=== PATIENT | female | born 1985 | race Two or more races ===

== ENCOUNTER 2019-07-23 01:51 | Emergency (ER) | payer MEDICAID ==
[~2019-07-23] VITALS: Ht 162.6 cm; Wt 84.4 kg
[2019-07-23 02:43] LABS: Basophils # (auto) 0 uL; Basophils % (auto) 0.3 % (0.0-2.0); Eosinophils # (auto) 0 uL; Eosinophils % (auto) 0.1 % (0.0-7.0); Hematocrit 35.4 % (36.0-46.0); Hemoglobin 12.1 g/dL (12.2-16.2); Lymphocytes # (auto) 1.3 uL; Lymphocytes % (auto) 18.3 % (10.0-50.0); Mean Corpuscular Hemoglobin 30.1 pg (28.0-32.0); Mean Corpuscular Hgb Conc. 34.3 g/dL (32.0-36.0); Mean Corpuscular Volume 87.7 fL (80.0-100.0); Monocytes # (auto) 0.2 uL; Neutrophils # (auto) 5.7 uL; Neutrophils % (auto) 78.3 % (37.0-80.0); Platelet Count (auto) 181 10^3/uL (140-450); Red Blood Cells 4.03 10^6/uL (4.0-5.20); Red Cell Distribution Width 14.2 % (11.8-14.3); White Blood Cell 7.3 10^3/uL (4.4-10.8)
[2019-07-23 02:59] LABS: INR 0.97 (0.9-1.15); Partial Thromboplastin Time 27.5 sec (23.64-32.05)
[2019-07-23 03:02] LABS: Albumin 3.7 g/dL (3.4-5.0); Anion Gap 8 (5-15); BUN/Creatinine Ratio 24.2; Blood Urea Nitrogen 15 mg/dL (7-18); Calcium 8.3 mg/dL (8.5-10.1); Carbon Dioxide 25 mmol/L (21-32); Chloride 106 mmol/L (98-107); GFR African American 141 mL/min; GFR Non-African American 116 mL/min; Glucose 183 mg/dL (74-106); Potassium 3.9 mmol/L (3.5-5.1); Sodium 139 mmol/L (136-145)
[2019-07-23 03:08] LABS: Alanine Aminotransferase 30 U/L (13-56); Alkaline Phosphatase 78 U/L (45-117); Aspartate Aminotransferase 14 U/L (15-37); Bilirubin, Total 0.1 mg/dL (0.2-1.0); Total Protein 7.8 g/dL (6.4-8.2)
[2019-07-23 05:58] VITALS: BP 145/89
== END 2019-07-23 07:24 | disposition left against medical advice (07) ==
LOC: ER 01:54
DX: J40 Bronchitis, not specified as acute or chronic (principal); I10 Essential (primary) hypertension
CPT/HCPCS: 36415; 71045; 80053; 83880; 84484; 85025; 85610; 85730; 93005

== ENCOUNTER 2019-09-09 18:00 | Emergency (ER) | payer MEDICAID ==
[~2019-09-09] VITALS: Ht 162.6 cm; Wt 81.6 kg
[2019-09-09 18:15] VITALS: BP 165/90
== END 2019-09-09 20:43 | disposition home or self-care (01) ==
LOC: ER 18:02
DX: G44.209 Tension-type headache, unspecified, not intractable (principal); M62.838 Other muscle spasm; M54.2 Cervicalgia; J45.909 Unspecified asthma, uncomplicated; I10 Essential (primary) hypertension

== ENCOUNTER 2019-09-16 08:31 | Emergency (ER) | payer MEDICAID ==
[~2019-09-16] VITALS: Ht 162.6 cm; Wt 81.6 kg
[2019-09-16 08:58] VITALS: BP 141/80
== END 2019-09-16 09:35 | disposition home or self-care (01) ==
LOC: ER 08:31
DX: R51 Headache (principal); M54.2 Cervicalgia; J45.909 Unspecified asthma, uncomplicated; I10 Essential (primary) hypertension; M62.838 Other muscle spasm

== ENCOUNTER 2019-11-04 18:49 | Emergency (ER) | payer MEDICAID ==
[~2019-11-04] VITALS: Ht 162.6 cm; Wt 81.2 kg
[2019-11-04 21:55] VITALS: BP 145/72
== END 2019-11-04 22:51 | disposition home or self-care (01) ==
LOC: ER 18:50
DX: J06.9 Acute upper respiratory infection, unspecified (principal); J45.909 Unspecified asthma, uncomplicated; I10 Essential (primary) hypertension

== ENCOUNTER 2019-11-20 00:06 | Emergency (ER) | payer MEDICAID ==
[~2019-11-20] VITALS: Ht 162.6 cm; Wt 81.6 kg
[~2019-11-20 00:06] MED LIST: AMLO5TAB15 PO; LISI-275 PO
[2019-11-20 01:22] LABS: Basophils # (auto) 0 uL; Basophils % (auto) 0.3 % (0.0-2.0); Eosinophils # (auto) 0.1 uL; Eosinophils % (auto) 1.4 % (0.0-7.0); Hematocrit 30.3 % (36.0-46.0); Hemoglobin 10.5 g/dL (12.2-16.2); Lymphocytes # (auto) 1.9 uL; Mean Corpuscular Hemoglobin 30.1 pg (28.0-32.0); Mean Corpuscular Hgb Conc. 34.5 g/dL (32.0-36.0); Mean Corpuscular Volume 87.4 fL (80.0-100.0); Monocytes # (auto) 0.5 uL; Monocytes % (auto) 6.5 % (0.0-12.0); Neutrophils # (auto) 5.7 uL; Neutrophils % (auto) 68.8 % (37.0-80.0); Platelet Count (auto) 150 10^3/uL (140-450); Red Blood Cells 3.47 10^6/uL (4.0-5.20); Red Cell Distribution Width 14.1 % (11.8-14.3); White Blood Cell 8.3 10^3/uL (4.4-10.8)
[2019-11-20 01:39] LABS: Albumin 3.4 g/dL (3.4-5.0); Calcium 8.7 mg/dL (8.5-10.1); Potassium 3.4 mmol/L (3.5-5.1)
[2019-11-20 01:41] LABS: BUN/Creatinine Ratio 17.3
[2019-11-20 01:44] LABS: Bilirubin, Total 0.3 mg/dL (0.2-1.0); Total Protein 7.5 g/dL (6.4-8.2)
[2019-11-20] MEDS ORDERED: PROMETHAZINE HCL 25 MG/ML 1ML IV ONE (03:30)
[2019-11-20] MEDS ORDERED: SODIUM CHLORIDE 0.9% 2,000 ML IV ONE (03:30)
[2019-11-20] MEDS ORDERED: IOHEXOL 300 MG/ML 100ML BOTTLE IJ ONE (04:35)
[2019-11-20 05:00] VITALS: BP 118/68
[2019-11-20 06:07] LABS: Urine Amorphous Crystal FEW /hpf (None Seen); Urine Bacteria FEW /hpf (None Seen); Urine Blood Negative /uL (Negative); Urine Specific Gravity 1.007 (1.001-1.035); Urine WBC 2 /hpf (0 - 5)
== END 2019-11-20 06:32 | disposition home or self-care (01) ==
LOC: ER 00:08
DX: N39.0 Urinary tract infection, site not specified (principal); G89.18 Other acute postprocedural pain; J45.909 Unspecified asthma, uncomplicated; I10 Essential (primary) hypertension; R42 Dizziness and giddiness; R51 Headache; Z90.49 Acquired absence of other specified parts of digestive tract
CPT/HCPCS: 36415; 70450; 80053; 81001; 81025; 85025; 85379; 99284; Q9967

== ENCOUNTER 2019-11-29 14:10 | Emergency (ER) | payer MEDICAID ==
[~2019-11-29] VITALS: Ht 162.6 cm; Wt 79.4 kg
[2019-11-29 14:51] VITALS: BP 139/88
== END 2019-11-29 17:09 | disposition home or self-care (01) ==
LOC: ER 14:10
DX: Z48.01 Encounter for change or removal of surgical wound dressing (principal); J45.909 Unspecified asthma, uncomplicated; I10 Essential (primary) hypertension; Z90.49 Acquired absence of other specified parts of digestive tract; Z79.899 Other long term (current) drug therapy

== ENCOUNTER 2020-06-17 04:39 | Emergency (ER) | payer MEDICAID ==
[~2020-06-17] VITALS: Ht 162.6 cm; Wt 80.7 kg
[2020-06-17] MEDS ORDERED: ACETAMINOPHEN 325 MG TAB PO ONE (06:00)
[2020-06-17 06:35] VITALS: BP 150/98
[2020-06-17 06:51] LABS: Basophils # (auto) 0 10 ^3/uL (0-0.2); Basophils % (auto) 0.4 % (0.0-2.0); Eosinophils # (auto) 0.1 10 ^3/uL (0-0.8); Eosinophils % (auto) 1.6 % (0.0-7.0); Hematocrit 36.5 % (36.0-46.0); Hemoglobin 12.4 g/dL (12.2-16.2); Lymphocytes # (auto) 0.8 10 ^3/uL (0.4-5.4); Lymphocytes % (auto) 25.2 % (10.0-50.0); Mean Corpuscular Hemoglobin 29.3 pg (28.0-32.0); Mean Corpuscular Hgb Conc. 33.8 g/dL (32.0-36.0); Mean Corpuscular Volume 86.6 fL (80.0-100.0); Monocytes # (auto) 0.4 10 ^3/uL (0-1.3); Monocytes % (auto) 12.4 % (0.0-12.0); Neutrophils % (auto) 60.4 % (37.0-80.0); Nucleated Red Blood Cells % 0.1 %; Platelet Count (auto) 125 10^3/uL (140-450); Red Blood Cells 4.22 10^6/uL (4.0-5.20); Red Cell Distribution Width 13.8 % (11.8-14.3); White Blood Cell 3.3 10^3/uL (4.4-10.8)
[2020-06-17 07:08] LABS: Albumin 3.8 g/dL (3.4-5.0); Calcium 8.3 mg/dL (8.5-10.1); Potassium 3.2 mmol/L (3.5-5.1)
[2020-06-17 07:10] LABS: BUN/Creatinine Ratio 14.5
[2020-06-17 07:12] LABS: Bilirubin, Total 0.2 mg/dL (0.2-1.0); Lactic Acid w/Reflex 2.1 mmol/L (0.4-2.0); Total Protein 8.2 g/dL (6.4-8.2)
[2020-06-17 07:45] LABS: Urine Bacteria NONE SEEN /hpf (None Seen); Urine Blood Negative /uL (Negative); Urine Mucus FEW (None Seen); Urine Specific Gravity 1.025 (1.001-1.035); Urine WBC 2 /hpf (0 - 5)
[2020-06-17] MEDS ORDERED: IPRATROPIUM BROM 0.5 MG/2.5ML INH SOL NEB ONE (08:30)
[2020-06-17] MEDS ORDERED: ALBUTEROL SULF 2.5 MG/0.5ML(0.5%) NEB SOLN NEB ONE (08:30)
== END 2020-06-17 09:58 | disposition home or self-care (01) ==
LOC: ER 04:39
DX: U07.1 COVID-19 (principal); R07.9 Chest pain, unspecified; R07.89 Other chest pain
CPT/HCPCS: 36415; 71045; 80053; 81001; 82728; 83605; 84484; 85025; 87070; 87804; 87880; 93005; 99285; J7030; U0003

== ENCOUNTER 2020-06-17 17:37 | Emergency (ER) | payer MEDICAID | END 2020-06-17 20:11 | disposition left against medical advice (07) | LOC: ER 17:37 | DX: R06.02 Shortness of breath (principal); R05 Cough; Z53.21 Procedure and treatment not carried out due to patient leaving prior to being seen by health care provider ==

== ENCOUNTER 2020-06-23 01:24 | Emergency (ER) | payer MEDICAID ==
[~2020-06-23] VITALS: Ht 162.6 cm; Wt 80.7 kg
[2020-06-23 01:30] VITALS: BP 161/99
== END 2020-06-23 03:33 | disposition left against medical advice (07) ==
LOC: ER 01:26
DX: U07.1 COVID-19 (principal); R06.02 Shortness of breath; Z53.21 Procedure and treatment not carried out due to patient leaving prior to being seen by health care provider

== ENCOUNTER 2020-07-10 14:16 | Emergency (ER) | payer MEDICAID ==
[~2020-07-10] VITALS: Ht 162.6 cm; Wt 81.6 kg
[2020-07-10 14:25] VITALS: BP 170/97
== END 2020-07-10 15:59 | disposition home or self-care (01) ==
LOC: ER 14:16
DX: R07.89 Other chest pain (principal)
CPT/HCPCS: 71045

== ENCOUNTER 2020-07-18 02:29 | Emergency (ER) | payer MEDICAID ==
[~2020-07-18] VITALS: Ht 162.6 cm; Wt 80.7 kg
[2020-07-18] MEDS ORDERED: cloNIDine HCL 0.1 MG TAB PO ONE (03:15)
[2020-07-18 03:56] LABS: Basophils # (auto) 0 10 ^3/uL (0-0.2); Basophils % (auto) 0.6 % (0.0-2.0); Eosinophils # (auto) 0.2 10 ^3/uL (0-0.8); Eosinophils % (auto) 3.1 % (0.0-7.0); Hematocrit 36.8 % (36.0-46.0); Hemoglobin 12.2 g/dL (12.2-16.2); Lymphocytes # (auto) 2.1 10 ^3/uL (0.4-5.4); Mean Corpuscular Hemoglobin 28.9 pg (28.0-32.0); Mean Corpuscular Hgb Conc. 33.1 g/dL (32.0-36.0); Mean Corpuscular Volume 87.3 fL (80.0-100.0); Monocytes # (auto) 0.5 10 ^3/uL (0-1.3); Monocytes % (auto) 6.5 % (0.0-12.0); Neutrophils # (auto) 4.2 10 ^3/uL (1.6-8.6); Neutrophils % (auto) 59.8 % (37.0-80.0); Platelet Count (auto) 166 10^3/uL (140-450); Red Blood Cells 4.22 10^6/uL (4.0-5.20); Red Cell Distribution Width 14.8 % (11.8-14.3)
[2020-07-18 04:07] LABS: Urine Amorphous Crystal FEW /hpf (None Seen); Urine Bacteria NONE SEEN /hpf (None Seen); Urine Blood Negative /uL (Negative); Urine Mucus FEW (None Seen); Urine WBC 14 /hpf (0 - 5)
[2020-07-18 04:13] LABS: Alanine Aminotransferase 29 U/L (13-56); Albumin 3.9 g/dL (3.4-5.0); Anion Gap 6 (5-15); Aspartate Aminotransferase 15 U/L (15-37); BUN/Creatinine Ratio 21.3; Blood Urea Nitrogen 13 mg/dL (7-18); Calcium 8.5 mg/dL (8.5-10.1); Carbon Dioxide 25 mmol/L (21-32); Chloride 108 mmol/L (98-107); GFR African American 143 mL/min; GFR Non-African American 118 mL/min; Glucose 95 mg/dL (74-106); Magnesium 2.3 mg/dL (1.6-2.6); Potassium 3.3 mmol/L (3.5-5.1); Sodium 139 mmol/L (136-145)
[2020-07-18 04:18] LABS: Alkaline Phosphatase 67 U/L (45-117); Bilirubin, Total 0.6 mg/dL (0.2-1.0); Total Protein 8.1 g/dL (6.4-8.2)
[2020-07-18] MEDS ORDERED: CIPROFLOXACIN HCL 500 MG TAB PO ONE (07:45)
[2020-07-18] MEDS ORDERED: POTASSIUM EFFERVESENT TAB 25 MEQ PO ONE (07:45)
[2020-07-18 08:16] VITALS: BP 130/69
== END 2020-07-18 08:33 | disposition home or self-care (01) ==
LOC: ER 02:29
DX: I10 Essential (primary) hypertension (principal); N39.0 Urinary tract infection, site not specified; E87.6 Hypokalemia; J45.909 Unspecified asthma, uncomplicated; Z90.49 Acquired absence of other specified parts of digestive tract; Z20.828 Contact with and (suspected) exposure to other viral communicable diseases
CPT/HCPCS: 36415; 71045; 80053; 81001; 82728; 83735; 83880; 84484; 85025; 87426; 93005

== ENCOUNTER 2020-07-23 20:26 | Emergency (ER) | payer MEDICAID | END 2020-07-23 21:29 | disposition left against medical advice (07) | LOC: ER 20:26 | DX: R51 Headache (principal); Z53.21 Procedure and treatment not carried out due to patient leaving prior to being seen by health care provider ==

== ENCOUNTER 2020-08-28 00:43 | Emergency (ER) | payer MEDICAID ==
[~2020-08-28] VITALS: Ht 162.6 cm; Wt 73.0 kg
[2020-08-28 02:32] LABS: Basophils # (auto) 0 10 ^3/uL (0-0.2); Basophils % (auto) 0.2 % (0.0-2.0); Eosinophils # (auto) 0 10 ^3/uL (0-0.8); Hematocrit 35.4 % (36.0-46.0); Hemoglobin 11.9 g/dL (12.2-16.2); Lymphocytes # (auto) 1.3 10 ^3/uL (0.4-5.4); Lymphocytes % (auto) 16.8 % (10.0-50.0); Mean Corpuscular Hemoglobin 29.6 pg (28.0-32.0); Mean Corpuscular Hgb Conc. 33.7 g/dL (32.0-36.0); Mean Corpuscular Volume 87.8 fL (80.0-100.0); Monocytes # (auto) 0.2 10 ^3/uL (0-1.3); Monocytes % (auto) 2.2 % (0.0-12.0); Neutrophils # (auto) 6.2 10 ^3/uL (1.6-8.6); Neutrophils % (auto) 80.8 % (37.0-80.0); Nucleated Red Blood Cells % 0.1 %; Platelet Count (auto) 173 10^3/uL (140-450); Red Blood Cells 4.03 10^6/uL (4.0-5.20); Red Cell Distribution Width 14.5 % (11.8-14.3); White Blood Cell 7.7 10^3/uL (4.4-10.8)
[2020-08-28 02:36] LABS: Urine Bacteria NONE SEEN /hpf (None Seen); Urine Blood Negative /uL (Negative); Urine Specific Gravity 1.011 (1.001-1.035); Urine WBC 4 /hpf (0 - 5)
[2020-08-28 02:47] LABS: Alcohol, Urine < 3.0 mg/dL (0-10); Amphetamine Screen, Urine NEGATIVE (NEGATIVE); Barbiturate Scree,Urine NEGATIVE (NEGATIVE); Benzodiazephine Screen, Urine NEGATIVE (NEGATIVE); Cannabinoid Screen, Urine NEGATIVE (NEGATIVE); Cocaine Screen, Urine NEGATIVE (NEGATIVE); Opiate Scree,Urine NEGATIVE (NEGATIVE); Phencyclidine Screen, Urine NEGATIVE (NEGATIVE)
[2020-08-28 02:56] LABS: Calcium 9.2 mg/dL (8.5-10.1); Potassium 3.8 mmol/L (3.5-5.1)
[2020-08-28 02:59] LABS: BUN/Creatinine Ratio 26.4; Bilirubin, Total 0.4 mg/dL (0.2-1.0); Total Protein 7.8 g/dL (6.4-8.2)
[2020-08-28] MEDS ORDERED: cefTRIAXone SOD 1,000 MG VL IM ONE (03:30)
[2020-08-28] MEDS ORDERED: cefTRIAXone SOD 1,000 MG VL ONE (05:00)
[2020-08-28] MEDS: cefTRIAXone W LIDOCAINE 1 GM IM IM ONE ×2 (05:07→05:12)
[2020-08-28 05:16] VITALS: BP 145/88
== END 2020-08-28 05:19 | disposition home or self-care (01) ==
LOC: ER 00:44
DX: N39.0 Urinary tract infection, site not specified (principal); F41.9 Anxiety disorder, unspecified; D64.9 Anemia, unspecified; Z20.828 Contact with and (suspected) exposure to other viral communicable diseases
CPT/HCPCS: 36415; 71045; 80053; 80307; 81001; 83880; 84443; 84484; 85025; 87426; 93005; 99285; J0696

== ENCOUNTER 2020-09-16 00:27 | Emergency (ER) | payer MEDICAID ==
[~2020-09-16] VITALS: Ht 162.6 cm; Wt 72.6 kg
[2020-09-16 01:45] LABS: Urine Bacteria FEW /hpf (None Seen); Urine Blood 3+ /uL (Negative); Urine Specific Gravity 1.011 (1.001-1.035); Urine WBC 12 /hpf (0 - 5)
[2020-09-16 01:48] LABS: Basophils # (auto) 0 10 ^3/uL (0-0.2); Basophils % (auto) 0.4 % (0.0-2.0); Eosinophils # (auto) 0 10 ^3/uL (0-0.8); Eosinophils % (auto) 0.3 % (0.0-7.0); Hematocrit 37.3 % (36.0-46.0); Hemoglobin 12.7 g/dL (12.2-16.2); Lymphocytes # (auto) 1.5 10 ^3/uL (0.4-5.4); Lymphocytes % (auto) 18.5 % (10.0-50.0); Mean Corpuscular Hemoglobin 30.1 pg (28.0-32.0); Mean Corpuscular Hgb Conc. 34.1 g/dL (32.0-36.0); Monocytes # (auto) 0.2 10 ^3/uL (0-1.3); Monocytes % (auto) 2.4 % (0.0-12.0); Neutrophils # (auto) 6.5 10 ^3/uL (1.6-8.6); Neutrophils % (auto) 78.4 % (37.0-80.0); Platelet Count (auto) 223 10^3/uL (140-450); Red Blood Cells 4.23 10^6/uL (4.0-5.20); Red Cell Distribution Width 15.1 % (11.8-14.3); White Blood Cell 8.3 10^3/uL (4.4-10.8)
[2020-09-16 02:03] LABS: INR 1.02 (0.9-1.15)
[2020-09-16 02:05] LABS: BUN/Creatinine Ratio 22.4; Calcium 9.6 mg/dL (8.5-10.1); Potassium 3.7 mmol/L (3.5-5.1)
[2020-09-16 02:08] LABS: Bilirubin, Total 0.4 mg/dL (0.2-1.0)
[2020-09-16 03:10] VITALS: BP 157/95
[2020-09-16] MEDS ORDERED: cefTRIAXone SOD 1,000 MG VL IM ONE (03:45)
== END 2020-09-16 04:28 | disposition home or self-care (01) ==
LOC: ER 00:28
DX: N92.1 Excessive and frequent menstruation with irregular cycle (principal); N39.0 Urinary tract infection, site not specified; J45.909 Unspecified asthma, uncomplicated; I10 Essential (primary) hypertension
CPT/HCPCS: 36415; 80053; 81001; 84484; 84702; 85025; 85610; 87086; 93005; 96372; 99284; J0696

== ENCOUNTER 2020-10-04 21:57 | Emergency (ER) | payer MEDICAID ==
[~2020-10-04] VITALS: Ht 162.6 cm; Wt 72.6 kg
[2020-10-04 22:41] VITALS: BP 146/102
== END 2020-10-05 02:33 | disposition left against medical advice (07) ==
LOC: ER 21:58
DX: R05 Cough (principal); Z53.21 Procedure and treatment not carried out due to patient leaving prior to being seen by health care provider; Z20.828 Contact with and (suspected) exposure to other viral communicable diseases
CPT/HCPCS: 36415; 71045; 87426

== ENCOUNTER 2022-08-08 15:27 | Emergency (ER) | payer MEDICAID ==
[~2022-08-08] VITALS: Ht 162.6 cm; Wt 75.0 kg
[~2022-08-08 15:27] MED LIST changes: +AMLO-489 PO; -AMLO5TAB15 PO
[2022-08-08] MEDS ORDERED: HYDROcodone-ACET 10/325MG TAB PO ONE (16:30)
[2022-08-08 16:55] LABS: Basophils # (auto) 0 10 ^3/uL (0-0.2); Basophils % (auto) 0.5 % (0.0-2.0); Eosinophils # (auto) 0.2 10 ^3/uL (0-0.8); Eosinophils % (auto) 4.6 % (0.0-7.0); Hemoglobin 11.7 g/dL (12.2-16.2); Lymphocytes % (auto) 37.7 % (10.0-50.0); Mean Corpuscular Hemoglobin 27.7 pg (28.0-32.0); Mean Corpuscular Hgb Conc. 32.4 g/dL (32.0-36.0); Mean Corpuscular Volume 85.4 fL (80.0-100.0); Monocytes # (auto) 0.3 10 ^3/uL (0-1.3); Monocytes % (auto) 6.3 % (0.0-12.0); Neutrophils # (auto) 2.6 10 ^3/uL (1.6-8.6); Neutrophils % (auto) 50.9 % (37.0-80.0); Nucleated Red Blood Cells % 0.1 %; Red Blood Cells 4.22 10^6/uL (4.0-5.20); White Blood Cell 5.2 10^3/uL (4.4-10.8)
[2022-08-08 17:13] LABS: Albumin 3.9 g/dL (3.4-5.0); BUN/Creatinine Ratio 32.1; Calcium 8.6 mg/dL (8.5-10.1); Potassium 3.3 mmol/L (3.5-5.1)
[2022-08-08 17:16] LABS: Bilirubin, Total 0.3 mg/dL (0.2-1.0); Total Protein 7.7 g/dL (6.4-8.2)
[2022-08-08 17:25] LABS: Urine Bacteria FEW /hpf (None Seen); Urine Blood Negative /uL (Negative); Urine Mucus FEW (None Seen); Urine Specific Gravity 1.029 (1.001-1.035); Urine WBC 16 /hpf (0 - 5)
[2022-08-08] MEDS ORDERED: NITR-87 PO (17:32)
[2022-08-08] MEDS ORDERED: POTASSIUM EFFERVESENT TAB 25 MEQ PO ONE (17:45)
[2022-08-08] MEDS ORDERED: IBU600T PO (17:46)
[2022-08-08 19:57] VITALS: BP 127/67
== END 2022-08-08 20:05 | disposition home or self-care (01) ==
LOC: ER 15:33
DX: N39.0 Urinary tract infection, site not specified (principal); E87.6 Hypokalemia; I10 Essential (primary) hypertension; J45.909 Unspecified asthma, uncomplicated; Z90.49 Acquired absence of other specified parts of digestive tract; Z79.899 Other long term (current) drug therapy
CPT/HCPCS: 36415; 74176; 80053; 81001; 85025

== ENCOUNTER 2023-03-17 05:04 | Emergency (ER) | payer MEDICAID ==
[~2023-03-17] VITALS: Ht 162.6 cm; Wt 75.4 kg
[~2023-03-17 05:04] MED LIST changes: +IBU600T PO; +NITR-87 PO
[2023-03-17 05:37] VITALS: BP 133/74
== END 2023-03-17 07:17 | disposition left against medical advice (07) ==
LOC: ER 05:04
DX: M79.604 Pain in right leg (principal); Z53.21 Procedure and treatment not carried out due to patient leaving prior to being seen by health care provider

== ENCOUNTER 2023-03-17 22:32 | Emergency (ER) | payer MEDICAID ==
[~2023-03-17] VITALS: Ht 162.6 cm; Wt 74.4 kg
[2023-03-18 02:36] LABS: Basophils # (auto) 0 10 ^3/uL (0-0.2); Basophils % (auto) 0.7 % (0.0-2.0); Eosinophils # (auto) 0.2 10 ^3/uL (0-0.8); Hematocrit 34.5 % (36.0-46.0); Hemoglobin 11.6 g/dL (12.2-16.2); Lymphocytes # (auto) 2.6 10 ^3/uL (0.4-5.4); Mean Corpuscular Hemoglobin 28.9 pg (28.0-32.0); Mean Corpuscular Hgb Conc. 33.6 g/dL (32.0-36.0); Mean Corpuscular Volume 86.1 fL (80.0-100.0); Monocytes # (auto) 0.4 10 ^3/uL (0-1.3); Monocytes % (auto) 7.8 % (0.0-12.0); Neutrophils # (auto) 1.5 10 ^3/uL (1.6-8.6); Neutrophils % (auto) 32.5 % (37.0-80.0); Nucleated Red Blood Cells % 0.2 %; Red Blood Cells 4.01 10^6/uL (4.0-5.20); Red Cell Distribution Width 13.8 % (11.8-14.3); White Blood Cell 4.7 10^3/uL (4.4-10.8)
[2023-03-18 02:45] LABS: Albumin 3.7 g/dL (3.4-5.0); BUN/Creatinine Ratio 36.2 (10.0-20.0); Calcium 8.8 mg/dL (8.5-10.1); Potassium 3.8 mmol/L (3.5-5.1)
[2023-03-18 02:47] LABS: Bilirubin, Total 0.2 mg/dL (0.2-1.0); Total Protein 7.8 g/dL (6.4-8.2)
[2023-03-18 03:01] VITALS: BP 151/86
== END 2023-03-18 03:05 | disposition home or self-care (01) ==
LOC: ER 22:32
DX: M79.604 Pain in right leg (principal); I10 Essential (primary) hypertension; J45.909 Unspecified asthma, uncomplicated; Z90.49 Acquired absence of other specified parts of digestive tract
CPT/HCPCS: 36415; 80053; 85025; 85379

== ENCOUNTER 2023-10-29 00:36 | Emergency (ER) | payer MEDICAID ==
[~2023-10-29] VITALS: Ht 162.6 cm; Wt 70.4 kg
[~2023-10-29 00:36] MED LIST changes: -AMLO-489 PO; +AMLO1TAB22 PO
[2023-10-29 01:55] LABS: Basophils # (auto) 0 10 ^3/uL (0-0.2); Basophils % (auto) 0.6 % (0.0-2.0); Eosinophils # (auto) 0.3 10 ^3/uL (0-0.8); Eosinophils % (auto) 6.1 % (0.0-7.0); Hematocrit 36.5 % (36.0-46.0); Hemoglobin 11.9 g/dL (12.2-16.2); Lymphocytes % (auto) 37.4 % (10.0-50.0); Mean Corpuscular Hgb Conc. 32.6 g/dL (32.0-36.0); Mean Corpuscular Volume 88.8 fL (80.0-100.0); Monocytes # (auto) 0.4 10 ^3/uL (0-1.3); Monocytes % (auto) 7.2 % (0.0-12.0); Neutrophils # (auto) 2.6 10 ^3/uL (1.6-8.6); Neutrophils % (auto) 48.7 % (37.0-80.0); Red Cell Distribution Width 14.7 % (11.8-14.3); White Blood Cell 5.3 10^3/uL (4.4-10.8)
[2023-10-29 02:12] LABS: Alanine Aminotransferase 15 U/L (7-40); Albumin 4.6 g/dL (3.2-4.8); Alkaline Phosphatase 64 U/L (46-116); Anion Gap 6 (5-15); Aspartate Aminotransferase 13 U/L (13-40); BUN/Creatinine Ratio 28.1 (10.0-20.0); Bilirubin, Total 0.5 mg/dL (0.2-1.0); Blood Urea Nitrogen 16 mg/dL (9-23); Calcium 9.2 mg/dL (8.7-10.4); Carbon Dioxide 26 mmol/L (20-30); Chloride 107 mmol/L (98-107); Glucose 96 mg/dL (74-106); Potassium 3.7 mmol/L (3.5-5.1); Sodium 139 mmol/L (136-145); Total Protein 7.5 g/dL (5.7-8.2)
[2023-10-29 02:33] LABS: Urine Bacteria NONE SEEN /hpf (None Seen); Urine Blood Negative /uL (Negative); Urine Clarity Clear (Clear); Urine Protein, UAD Negative (Negative); Urine Specific Gravity 1.006 (1.001-1.035); Urine Urobilinogen Normal (Negative); Urine WBC <1 /hpf (0 - 5)
[2023-10-29 02:34] LABS: Urine Color Straw (Yellow)
[2023-10-29 04:27] VITALS: BP 143/77; PULSE 71; RESP 18; TEMP 98.2; O2SAT 100
== END 2023-10-29 06:00 | disposition left against medical advice (07) ==
LOC: ER 00:36
DX: R51.9 Headache, unspecified (principal); I10 Essential (primary) hypertension; Z53.21 Procedure and treatment not carried out due to patient leaving prior to being seen by health care provider
CPT/HCPCS: 36415; 70450; 80053; 81001; 83735; 84484; 85025; 93005

== ENCOUNTER 2024-03-19 20:33 | Emergency (ER) | payer MEDICAID ==
[~2024-03-19] VITALS: Ht 162.6 cm; Wt 69.0 kg
[2024-03-19] MEDS: cloNIDine HCL 0.1 MG TAB PO ONE (20:58)
[2024-03-20 00:15] VITALS: BP 115/73; PULSE 83; RESP 19; O2SAT 100
== END 2024-03-20 00:17 | disposition home or self-care (01) ==
LOC: ER 20:33
DX: I16.0 Hypertensive urgency (principal); I34.1 Nonrheumatic mitral (valve) prolapse; Z90.49 Acquired absence of other specified parts of digestive tract

== ENCOUNTER 2024-07-01 14:27 | Emergency (ER) | payer MEDICAID ==
[~2024-07-01] VITALS: Ht 162.6 cm; Wt 67.7 kg
[2024-07-01 16:14] VITALS: BP 146/90; PULSE 66; RESP 16; TEMP 98; O2SAT 97
[2024-07-01] MEDS ORDERED: IBUP1TAB5 PO (16:23)
== END 2024-07-01 16:31 | disposition home or self-care (01) ==
LOC: ER 14:27
DX: S93.401A Sprain of unspecified ligament of right ankle, initial encounter (principal); I10 Essential (primary) hypertension; Z90.49 Acquired absence of other specified parts of digestive tract; X58.XXXA Exposure to other specified factors, initial encounter; Y93.89 Activity, other specified; Y92.89 Other specified places as the place of occurrence of the external cause; Y99.8 Other external cause status
CPT/HCPCS: 73610

== ENCOUNTER 2025-02-15 05:38 | Emergency (ER) | payer MEDICAID ==
[~2025-02-15] VITALS: Ht 162.6 cm; Wt 72.8 kg
[~2025-02-15 05:38] MED LIST changes: +IBUP1TAB5 PO
[2025-02-15 06:25] VITALS: BP 147/86; TEMP 97.7
--- NOTE | 2025-02-15 06:40 | ED.PDOC ---
History of Present Illness HPI Comments A 39 YEAR OLD FEMALE PRESENTS TO THE ED WITH COMPLAINT OF HEADACHE AND LEFT EYE PAIN. PATIENT STATES SHE HAS BEEN EXPERIENCING A HEADACHE OFF AND ON FOR THE PAST 3 DAYS. PATIENT REPORTS SHE BEGAN TO EXPERIENCE LEFT EYE REDNESS WITH PAIN OVER THE LAST 2 DAYS. PATIENT DENIES VISION CHANGES, SLURRED SPEECH, ONE-SIDED WEAKNESS, FACIAL DROOP, FEVER, CHILLS, SHORTNESS OF BREATH, CHEST PAIN, ABDOMINAL PAIN, NAUSEA, VOMITING, OR OTHER COMPLAINTS. NO OTHER SYMPTOMS OR MODIFYING FACTORS AT THIS TIME. PATIENT IS ALERT, ORIENTED X 4, AND HAS STEADY GAIT. Chief Complaint: Headache Time Seen by MD: 06:19 Primary Care Provider: NONE Reviewed Notes: Nurses Notes, Medications, Allergies Allergies: Coded Allergies: NO KNOWN ALLERGIES (Unverified , 07/10/20) Home Meds Active Scripts Tobramycin Sulfate (Tobrex) [address], 2 DROP OP QID, #5 ML Prov:MARIEL ESPINOZA 02/15/25 Ibuprofen (Ibuprofen) 800 Mg Tab, 1 TAB PO TID, #24 TAB Prov:MARIEL ESPINOZA 02/15/25 Ibuprofen Micronized (Ibuprofen) 600 Mg Tab, 600 MG PO TID for 10 Days, #30 TAB 0 Refills Prov:NILSA LEAVITT NP 07/01/24 Ibuprofen Micronized (MOTRIN TABLET) 600 Mg Tb, 600 MG PO TID PRN for 5 Days, #15 TAB *Black box warning-NSAIDS can increase risk of NM & hypertension, GI irritation, ulceration, bleed, perferation. Do not use post cardiac surgery. Use short duration/lowest effective dose. Prov:SUSI AVINA MD 08/08/22 Nitrofurantoin Monohydrate Mac (Macrobid) 100 Mg Cap, 100 MG PO BID for 7 Days, #14 CAP Prov:SUSI AVINA MD 08/08/22 Reported Medications Lisinopril (Lisinopril) 5 Mg Tab, 5 MG PO DAILY for 30 Days, MG 11/18/19 Amlodipine Besylate (Amlodipine Besylate) 5 Mg Tab, 5 MG PO DAILY for 30 Days, MG 11/18/19 Information Source: Patient Mode of Arrival: Ambulatory Severity: Moderate Timing: Days Duration: Intermittent Prehospital treatment: None Medication Refill: For: Pain (RIGHT SIDE HEAD ), For: Other (HEADACHE AND LEFT EYE PAIN) Past Medical History PAST MEDICAL HISTORY: HTN Surgical History: Appendectomy, Cholecystectomy DEVELOPMENT REP History: Denies all DEVELOPMENT REP Hx Family History Family History: Reviewed,noncontributory to illness, Family hx of DM, Family hx of heart julian, Family hx of HTN Social History Smoker: Non-Smoker Alcohol: Denies ETOH Use Drugs: Denies Drug Use Lives In: Home Constitutional: denies: chills, diaphoresis, fatigue, fever, malaise, sweats, weakness, others EENTM: reports: eye pain; denies: blurred vision, double vision, ear bleeding, ear discharge, ear drainage, ear pain, ear ringing, eye redness, hearing loss, mouth pain, mouth swelling, nasal discharge, nose bleeding, nose congestion, nose pain, photophobia, tearing, throat pain, throat swelling, voice changes, others Respiratory: denies: cough, hemoptysis, orthopnea, SOB at rest, shortness of breath, SOB with excertion, stridor, wheezing, others Cardiovascular: denies: chest pain, dizzy spells, diaphoresis, Dyspnea on exertion, edema, irregular heart beat, left arm pain, lightheadedness, palpitations, PND, syncope, others Gastrointestinal: denies: abdomen distended, abdominal pain, blood streaked bowels, constipated, diarrhea, dysphagia, difficulty swallowing, hematemesis, melena, nausea, poor appetite, poor fluid intake, rectal bleeding, rectal pain, vomiting, others Genitourinary: denies: abnormal vagina bleeding, burning, dyspareunia, dysuria, flank pain, frequency, hematuria, incontinence, pain, , vagina discharge, urgency, others Neurological: reports: headache; denies: dizziness, fainting, left sided numbness, left sided weakness, numbness, paresthesia, pre-existing deficit, right sided numbness, right sided weakness, seizure, speech problems, tingling, tremors, weakness, others Musculoskeletal: denies: back pain, gout, joint pain, joint swelling, muscle pain, muscle stiffness, neck pain, others Integumetry: denies: bruises, change in color, change in hair/nails, dryness, laceration, lesions, lumps, rash, wounds, others Allergic/Immunocompromised: denies: Difficulty Healing, Frequent Infections, Hives, Itching, others Hematologic/Lymphatic: denies: anemia, blood clots, easy bleeding, easy bruising, swollen glands, others Endocrine: denies: excessive hunger, excessive sweating, excessive thirst, excessive urination, flushing, intolerance to cold, intolerance to heat, unexplained weight gain, unexplained weight loss, others Psychiatric: denies: anxiety, bipolar disorder, depression, hopeless, panic disorder, schizophrenia, sleepless, suicidal, others All Other Systems: Reviewed and Negative Physical Exam General Appearance: No Apparent Distress, Normal HEENT: Normal ENT Inspection, PERRL/EOMI, Pharynx Normal, TMs Normal, Other (RIGHT SUBCONJUNCTIVA HEMORRHAGE WITH MILD GREEN DISCHARGE. ) Neck: Full Range of Motion, Non-Tender, Normal, Normal Inspection Respiratory: Chest Non-Tender, Lungs Clear, No Accessory Muscle Use, No Respiratory Distress, Normal Breath Sounds Cardiovascular: No Edema, No JVD, No Murmur, No Gallop, Normal Peripheral Pulses, Regular Rate/Rhythm Breast Exam: Deferred Gastrointestinal: No Organomegaly, Non Tender, No Pulsatile Mass, Normal Bowel Sounds, Soft Genitalia: Deferred Pelvic: Deferred Rectal: Deferred Extremities: No calf tenderness, Normal capillary refill, Normal inspection, Normal range of motion, Non-tender, No pedal edema Musculoskeletal : Apperance: Normal Neurologic: Alert, supervisor sewing room II-XII nml as Tested, Headache, No Motor Deficits, Normal Affect, Normal Mood, No Sensory Deficits Cerebellar Function: Normal Reflexes: Normal Skin: Dry, Normal Color, Warm Peripheral Pulses: 2+ carotid (R), 2+ carotid (L) Lymphatic: No Adenopathy Was a procedure done? Was a procedure done?: No Differential Dx Considerations may include: TENSION HEADACHE, MIGRAINE HEADACHE, BRAIN MASS, BRAIN BLEED, CONJUNCTIVITIS, HORDEOLUM, ALLERGIC REACTION, EYE IRRITATION, ANXIETY REACTION, HYPERVENTILATION SYNDROME X-Ray, Labs, Meds, VS Vital Signs Date Time Temp Pulse Resp B/P (MAP) Pulse Ox O2 Delivery O2 Flow Rate FiO2 02/15/25 07:10 63 18 98 Room Air 02/15/25 06:30 Room Air* 0 21 02/15/25 06:25 97.7 63 18 147/86 (106) 98 97.7 02/15/25 05:49 97.7 63 18 147/86 (106) 98 97.7 EXAM: CT HEAD WITHOUT CONTRAST INDICATION: RIGHT SIDE HEAD PAIN TECHNIQUE: CT of the head without intravenous contrast. Radiation Dose : 1. Head: CT Dose: CTDI volume is 53.63 mGy. Dose-length product is 1057.02 mGy*cm The dose indicators for CT are the volume Computed Tomography (CT) Dose Index (CTDIvol) and the Dose Length Product (DLP), and are measured in units of mGy and mGy-cm, respectively. These indicators are not patient dose, but values generated from the CT scanner acquisition factors. The report includes radiation exposure data for exposures received during this examination. COMPARISON: CT HEAD WITHOUT CONTRAST on DOS: 10/29/23 FINDINGS: There is no evidence of acute intracranial hemorrhage, extra-axial collection, mass effect, midline shift, herniation or hydrocephalus. The ventricles, sulci and cisterns are age appropriate. The wahl-white differentiation is intact. Minimal left maxillary and bilateral ethmoid mucosal thickening noted. Otherwise, the visualized paranasal sinuses and mastoid air cells are clear. The surrounding soft tissues and osseous structures are unremarkable. IMPRESSION: 1. No acute intracranial abnormality. Radiation optimization: All CT scans at this facility use at least one of these dose optimization techniques: automated exposure control mA and/or kV adjustment per patient size (includes targeted exams where dose is matched to clinical indication) or iterative reconstruction. ATED BY: REGGIE ROMERO MD DICTATED DATE/TIME: 02/15/25653 SIGNED BY: REGGIE ROMERO MD SIGNED DATE/TIME: 02/15/25653 CC: X-Ray, Labs, Meds, VS Comment EXTERNAL MEDICAL RECORDS REVIEWED: [NONE] INDEPENDENT HISTORIANS: [NONE] SOCIAL DETERMINANTS OF HEALTH: [NONE] LABS ORDERED: NONE REVIEWED AND INTERPRETED RESULTS: NONE IMAGING ORDERED: CT BRAIN TREATMENTS ORDERED: NONE PROCEDURES PERFORMED: NONE CRITICAL CARE TIME: NONE I HAVE DISCUSSED THE PATIENT WITH THE ATTENDING PHYSICIAN DR. JOHNSON AND HE AGREES WITH THE PATIENT'S PLAN OF CARE AND DISPOSITION. BASED ON HISTORY OF PRESENT ILLNESS, AND PHYSICAL EXAM, PATIENT WILL BE DISCHARGED HOME. DISCUSSED PLAN FOR DISCHARGE HOME WITH RX [TOBRAMYCIN]. ME DICATION WARNINGS GIVEN. SHARED DECISION MAKING: DISCUSSED WITH PATIENT THAT THEIR WORKUP WAS NORMAL. PATIENT INSTRUCTED TO FOLLOW UP WITH PRIMARY CARE PROVIDER IN 1-2 DAYS FOR RE- EVALUATION OF SYMPTOMS. PATIENT VERBALIZES UNDERSTANDING TO RETURN TO ED FOR NEW OR WORSENING SYMPTOMS OR IF FOLLOW UP WITH PCP CANNOT BE OBTAINED. PATIENT FEELS COMFORTABLE GOING HOME AT THIS TIME. ALL QUESTIONS ADDRESSED AT TIME OF DISCHARGE. Images Reviewed?: Images reviewed and evaluated by me Time of 1ST Reevaluation: 07:15 Reevaluation 1ST: Improved Patient Education/Counseling: Diagnosis, Treatment, Need For Follow Up Family Education/Counseling: Diagnosis, Treatment, Need For Follow Up Medical Screening: No EMC Exist At This Time Departure 1 Departure Time of Disposition: 07:15 Impression: Primary Impression: Tension headache Additional Impression: Acute conjunctivitis of left eye Qualified Codes: H10.32 - Unspecified acute conjunctivitis, left eye Disposition: HOME / SELF CARE / HOMELESS Condition: Stable Additional Instructions: FOLLOW-UP WITH PCP IN 1 TO 2 DAYS. TAKE MEDICATIONS PRESCRIBED. RETURN TO ED FOR ANY NEW OR WORSENING SYMPTOMS. e-Prescriptions Tobramycin Sulfate (Tobrex) [address] 2 DROP OP QID, #5 ML Prov: MARIEL ESPINOZA 02/15/25 Ibuprofen (Ibuprofen) 800 Mg Tab 1 TAB PO TID, #24 TAB Prov: MARIEL ESPINOZA 02/15/25 Discharged With: Self Critical Care Note Critical Care Time?: No Stability Stability form required: No I personally scribed for MARIEL ESPINOZA ([email or web address]) on 02/15/25 at 06:40. Electronically submitted by Se Pozo ([email or web address]). I personally scribed for MARIEL ESPINOZA ([email or web address]) on 02/15/25 at 07:09. Electronically submitted by Se Pozo ([email or web address]). MARIEL ESPINOZA Feb 15, 2025 06:40
--- NOTE | 2025-02-15 06:57 | DVH ---
EXAM: CT HEAD WITHOUT CONTRAST INDICATION: RIGHT SIDE HEAD PAIN TECHNIQUE: CT of the head without intravenous contrast. Radiation Dose : 1. Head: CT Dose: CTDI volume is 53.63 mGy. Dose-length product is 1057.02 mGy*cm The dose indicators for CT are the volume Computed Tomography (CT) Dose Index (CTDIvol) and the Dose Length Product (DLP), and are measured in units of mGy and mGy-cm, respectively. These indicators are not patient dose, but values generated from the CT scanner acquisition factors. The report includes radiation exposure data for exposures received during this examination. COMPARISON: CT HEAD WITHOUT CONTRAST on DOS: 10/29/23 FINDINGS: There is no evidence of acute intracranial hemorrhage, extra-axial collection, mass effect, midline s hift, herniation or hydrocephalus. The ventricles, sulci and cisterns are age appropriate. The wahl-white differentiation is intact. Minimal left maxillary and bilateral ethmoid mucosal thickening noted. Otherwise, the visualized para nasal sinuses and mastoid air cells are clear. The surrounding soft tissues and osseous structures are unremarkable. IMPRESSION: 1. No acute intracranial abnormality. Radiation optimization: All CT scans at this facility use at least one of these dose optimization anand hniques: automated exposure control mA and/or kV adjustment per patient size (includes targeted exam s where dose is matched to clinical indication) or iterative reconstruction.
[2025-02-15 07:10] VITALS: PULSE 63; RESP 18; O2SAT 98
[2025-02-15] MEDS ORDERED: TOB03OS OP (07:14)
[2025-02-15] MEDS ORDERED: IBUP-1456 PO (07:14)
== END 2025-02-15 07:18 | disposition home or self-care (01) ==
LOC: ER 05:38
DX: G44.209 Tension-type headache, unspecified, not intractable (principal); H10.32 Unspecified acute conjunctivitis, left eye; I10 Essential (primary) hypertension; Z79.1 Long term (current) use of non-steroidal anti-inflammatories (NSAID); Z79.899 Other long term (current) drug therapy; Z90.49 Acquired absence of other specified parts of digestive tract
CPT/HCPCS: 70450